=== PATIENT | male | born 1955 | race Caucasian/White ===

== ENCOUNTER 2021-01-23 06:23 | Day surgery (SDC) | payer MEDICARE ==
[~2021-01-23] VITALS: Ht 195.6 cm; Wt 165.6 kg
[2021-01-23] MEDS ORDERED: PROPOFOL 50 ML ONE (07:23)
[2021-01-23] MEDS ORDERED: CHLORHEXIDINE 15 ML UDC PO ONE (07:30)
[2021-01-23] MEDS ORDERED: LACTATED RINGERS 1,000 ML IV SCH (07:30)
[2021-01-23 07:59] VITALS: BP 132/78
[2021-01-23] MEDS ORDERED: ATEN50TA41 PO (08:10)
[2021-01-23] MEDS ORDERED: DILT180C53 PO (08:10)
[2021-01-23 08:13] LABS: ALANINE AMINOTRANSFERASE 29 U/L (12-78); ALBUMIN 2.9 g/dL (3.4-5.0); ANION GAP 9 mmol/L (5-15); CALCIUM 8.8 mg/dL (8.5-10.1); CHLORIDE 103 mmol/L (98-107); CREATININE 1.23 mg/dL (0.7-1.3); INTERNATIONAL NORMALIZED RATIO 1.35 (0.93-1.1); PROTHROMBIN TIME 14.2 Seconds (9.6-11.5)
[2021-01-23] MEDS ORDERED: FURO-92 PO (08:15)
[2021-01-23] MEDS ORDERED: LISI-167 PO (08:15)
[2021-01-23] MEDS ORDERED: PRAV40TA2 PO (08:15)
[2021-01-23] MEDS ORDERED: METF500T17 PO (08:15)
[2021-01-23] MEDS ORDERED: WARF7.5T46 PO (08:15)
[2021-01-23] MEDS ORDERED: WARF-36 PO (08:15)
[2021-01-23 08:16] LABS: ALKALINE PHOSPHATASE 54 U/L (45-117); BILIRUBIN,TOTAL 1.3 mg/dL (0.2-1.0); TOTAL PROTEIN 7.4 g/dL (6.4-8.2)
[2021-01-23] MEDS ORDERED: ONDANSETRON 2MG/ML, 2ML IVPush PRN (08:30)
[2021-01-23] MEDS ORDERED: PROMETHAZINE 25 MG/ML, 1ML IVPush PRN (08:30)
[2021-01-23] MEDS ORDERED: FENTANYL PF 100 MCG/2ML IV PRN (08:30)
[2021-01-23] MEDS ORDERED: DIPHENHYDRAMINE 50 MG/ML, 1ML IVPush PRN (08:30)
[2021-01-23] MEDS ORDERED: LABETALOL 5MG/ML, 20ML IV PRN (08:30)
[2021-01-23] MEDS ORDERED: DIAZEPAM 5 MG/ML, 2ML IVPush PRN (08:30)
[2021-01-23] MEDS ORDERED: EPHEDRINE 50 MG/ML, 1ML IVPush PRN (08:30)
[2021-01-23] MEDS ORDERED: PROPOFOL 10 MG/ML, 20ML ONE (08:38)
== END 2021-01-23 10:20 | disposition home or self-care (01) ==
LOC: OUT 06:23
PROVIDERS: ATTEND Internal Medicine Gastroenterology
DX: K86.89 Other specified diseases of pancreas (principal); R19.7 Diarrhea, unspecified; K29.50 Unspecified chronic gastritis without bleeding; D68.51 Activated protein C resistance; N28.1 Cyst of kidney, acquired; E11.9 Type 2 diabetes mellitus without complications; I48.91 Unspecified atrial fibrillation; G47.33 Obstructive sleep apnea (adult) (pediatric); E66.01 Morbid (severe) obesity due to excess calories; Z20.822 Contact with and (suspected) exposure to COVID-19; Z79.01 Long term (current) use of anticoagulants; Z79.84 Long term (current) use of oral hypoglycemic drugs; Z79.899 Other long term (current) drug therapy; Z86.711 Personal history of pulmonary embolism; Z87.891 Personal history of nicotine dependence
CPT/HCPCS: 36415; 43239; 43259; 80053; 82962; 85610; 87635; 88305; 93005; J2704; J7120